=== PATIENT | female | born 1970 | race Caucasian/White ===

== ENCOUNTER 2021-06-21 09:52 | Emergency (ER) | payer BC, MEDICAID ==
[~2021-06-21] VITALS: Ht 172.7 cm; Wt 55.0 kg
[2021-06-21] MEDS ORDERED: TETANUS, DIPHTHERIA, PERTUSSIS VAC/PF 0.5ML (>10YR OLD) IM ONE (11:00)
[2021-06-21] MEDS ORDERED: LIDOCAINE HCL/PF 1% 10 MG/ML 5ML VIAL INFIL ONE (11:00)
[2021-06-21] MEDS ORDERED: BACITRACIN ZINC OINT UDPKT TOP ONE (11:00)
[2021-06-21] MEDS ORDERED: HYDROCODONE/ACETAMINOPHEN 5/325MG TABLET PO ONE (11:00)
[2021-06-21 11:04] VITALS: BP 124/82
[2021-06-21] MEDS ORDERED: LIDOCAINE HCL 1% 10 MG/ML 10ML VIAL INJ ONE (11:15)
[2021-06-21] MEDS ORDERED: BO1 TP (14:06)
== END 2021-06-21 14:13 | disposition home or self-care (01) ==
LOC: EDSEX 09:52 → ER 09:52
DX: S01.412A Laceration without foreign body of left cheek and temporomandibular area, initial encounter (principal); S40.812A Abrasion of left upper arm, initial encounter; I10 Essential (primary) hypertension; Z98.890 Other specified postprocedural states; Z91.018 Allergy to other foods; X99.8XXA Assault by other sharp object, initial encounter; Y93.89 Activity, other specified; Y92.488 Other paved roadways as the place of occurrence of the external cause
CPT/HCPCS: 12013; 70486; 90471; 90715; 99284; J3490; Z7610

== ENCOUNTER 2021-06-23 16:06 | Emergency (ER) | payer BC, MEDICAID ==
[~2021-06-23] VITALS: Ht 170.2 cm; Wt 57.0 kg
[~2021-06-23 16:06] MED LIST: BO1 TP
[2021-06-23 16:09] VITALS: BP 121/75
== END 2021-06-23 21:20 | disposition left against medical advice (07) ==
LOC: ER 16:06
DX: Z53.21 Procedure and treatment not carried out due to patient leaving prior to being seen by health care provider (principal)